=== PATIENT | male | born 1990 | race Caucasian/White ===

== ENCOUNTER 2019-09-19 08:32 | Emergency (ER) | payer SELFPAY ==
[~2019-09-19] VITALS: Ht 167.6 cm; Wt 65.8 kg
--- NOTE | 2019-09-19 08:35 | NUR ---
PT BIBA TO ER BED 11
[2019-09-19 08:36] VITALS: BP 139/86
--- NOTE | 2019-09-19 08:47 | NUR ---
BIBA W/ C/O EXHAUSTION AND BONE PAIN. PT DENIES MED HX. PT DENIES ACUTE SYMPTOMS AT THIS TIME. FSBS 97 IN THE FIELD. PT A/O X 4. AMBULATORY W/ STEADY GAIT. PT RESTING IN BED, BED IN LOW POSITION, SIDE RAIL x1.
--- NOTE | 2019-09-19 08:49 | NUR ---
ERMD BEDSIDE EVALUATING PT
[2019-09-19] MEDS ORDERED: ACETAMINOPHEN EXTRA STRENGTH 500 MG TAB PO ONE (08:55)
--- NOTE | 2019-09-19 09:11 | NUR ---
ordered food tray for pt
--- NOTE | 2019-09-19 09:20 | NUR ---
pt sitting up and eating lunch at bedside
--- NOTE | 2019-09-19 10:15 | NUR ---
Patient discharged with v/s stable. Written and verbal after care instructions given and explained. Patient verbalized understanding. Ambulatory with steady gait. All questions addressed prior to discharge. Advised to follow up with PMD. PT PROVIDED W/ HOMELESS RESOURCES, FOOD AND BUS PASS UPON DISCHARGE.
[2019-09-19 10:20] VITALS: BP 139/86
== END 2019-09-19 10:15 | disposition home or self-care (01) ==
LOC: MED 08:32
DX: R03.0 Elevated blood-pressure reading, without diagnosis of hypertension (principal); Z00.00 Encounter for general adult medical examination without abnormal findings
CPT/HCPCS: 99283